=== PATIENT | male | born 1980 | race Caucasian/White ===

== ENCOUNTER 2017-01-04 19:26 | Observation (INO) | payer MEDICAID, OTHER ==
[~2017-01-04] VITALS: Ht 177.8 cm; Wt 80.0 kg
[2017-01-04 19:57] LABS: DAU SCREEN DISCLAIMER
[2017-01-04] MEDS ORDERED: SODIUM CHLORIDE 0.9% 1,000ML IVBOLUS ONE (20:00)
[2017-01-04] MEDS ORDERED: SODIUM CHLORIDE FLUSH 10ML SYR IVF ONE (20:00)
[2017-01-04 20:17] LABS: HEMATOCRIT 46.7 % (39.2-51.8); HEMOGLOBIN 16.1 g/dL (13.7-18.0); WHITE BLOOD COUNT 16.1 x10^3/uL (3.4-10)
[2017-01-04 20:26] LABS: ASPARTATE AMINO TRANSFERASE 24 U/L (15-37); BLOOD UREA NITROGEN 13 mg/dL (7-18)
[2017-01-04] MEDS ORDERED: ONDANSETRON 2MG/ML, 2ML ONE (23:13)
[2017-01-05] MEDS ORDERED: LORazepam 2 MG/ML, 1ML IVPush PRN
[2017-01-05] MEDS ORDERED: ONDANSETRON 2MG/ML, 2ML IVPush ONE
[2017-01-05] MEDS ORDERED: ONDANSETRON ODT 4 MG PO PRN (02:30)
[2017-01-05 10:30] LABS: ASPARTATE AMINO TRANSFERASE 19 U/L (15-37); BLOOD UREA NITROGEN 11 mg/dL (7-18)
[2017-01-05 11:15] VITALS: BP 137/89
[2017-01-05 20:37] VITALS: BP 151/109
[2017-01-06 05:36] LABS: ASPARTATE AMINO TRANSFERASE 15 U/L (15-37); BLOOD UREA NITROGEN 13 mg/dL (7-18)
[2017-01-06 05:42] LABS: HEMATOCRIT 44.9 % (39.2-51.8); HEMOGLOBIN 15.3 g/dL (13.7-18.0); WHITE BLOOD COUNT 11.4 x10^3/uL (3.4-10)
[2017-01-06] MEDS ORDERED: POTASSIUM CHLORIDE 20 MEQ TAB.ER.PRT PO ONE (06:00)
[2017-01-06 07:55] VITALS: BP 133/92
[2017-01-06 19:22] VITALS: BP 146/95
[2017-01-07 08:00] VITALS: BP 145/101
== END 2017-01-07 15:32 ==
LOC: ED 23:08 → INTOOBSV 01-05 02:03 → EDIP 01-05 02:03 → 3E 01-05 11:09
PROVIDERS: ADMIT Internal Medicine; ATTEND Internal Medicine
DX: T39.1X2A Poisoning by 4-Aminophenol derivatives, intentional self-harm, initial encounter (principal); D72.828 Other elevated white blood cell count; E87.6 Hypokalemia; F12.90 Cannabis use, unspecified, uncomplicated; F41.1 Generalized anxiety disorder; Z82.49 Family history of ischemic heart disease and other diseases of the circulatory system; Z87.442 Personal history of urinary calculi
CPT/HCPCS: 36415; 80053; 80307; 80329; 85025; 85610; 93005; 96361; 96374; 99285; G0378; J2405; J7030; G0479; G0480